=== PATIENT | female | born 1950 | race Caucasian/White ===

== ENCOUNTER 2018-01-07 15:27 | Inpatient (IN) | payer OTHER ==
[2018-01-07] MEDS: ALBUTEROL 0.5% (NEB) 2.5 MG/0.5 ML AMP INH ×2 (16:23→17:11)
[2018-01-07] MEDS: IPRATROPIUM (NEB) 0.5 MG/2.5 ML AMP INH ×2 (16:23→17:11)
[2018-01-07] MEDS: METHYLPREDNISOLONE 125 MG INJ IV ×2 (16:29→21:30)
[2018-01-07] MEDS: MAGNESIUM SULFATE 2 GM/50 ML 50 ML IVPB (16:29)
[2018-01-07] MEDS: SODIUM CHLORIDE 0.9% 1L BAG IV* (16:30)
[2018-01-07 16:36] LABS: ADD MAN DIFF? NO
[2018-01-07 16:37] LABS: WHITE BLOOD COUNT 9.7 10^3/ul (4.8-10.8)
[2018-01-07 16:37] LABS: BASOPHIL # 0.1 10^3/ul (0.0-0.1); BASOPHILS % 0.6 % (0.0-2.0); EOSINOPHILS # 0.1 10^3/ul (0.0-0.5); EOSINOPHILS % 1.1 % (0.0-7.0); HEMATOCRIT 43.3 % (37.0-47.0); HEMOGLOBIN 14.2 g/dl (12.0-16.0); LYMPHOCYTES # 2.7 10^3/ul (0.8-2.9); LYMPHOCYTES % 28.2 % (15.0-51.0); MEAN CORPUSCULAR HEMOGLOBIN 30.9 pg (29.0-33.0); MEAN CORPUSCULAR HGB CONC 32.8 g/dl (32.0-37.0); MEAN CORPUSCULAR VOLUME 94.3 fl (82.0-101.0); MEAN PLATELET VOLUME 9.4 fl (7.4-10.4); MONOCYTE # 0.8 10^3/ul (0.3-0.9); NEUTROPHIL # 5.9 10^3/ul (1.6-7.5); NEUTROPHILS % 61.5 % (39.0-77.0); PLATELET COUNT 365 10^3/UL (140-415); RED BLOOD COUNT 4.59 10^6/ul (4.20-5.40)
[2018-01-07 16:53] LABS: INR 0.93; PROTIME 12.6 Sec (11.9-14.9)
[2018-01-07 16:54] LABS: PARTIAL THROMBOPLASTIN TIME 25.7 Sec (25.0-35.0)
[2018-01-07 17:01] LABS: ALANINE AMINOTRANSFERASE 24 IU/L (13-69); ALKALINE PHOSPHATASE 63 IU/L (42-121); ANION GAP 15 (8-16); ASPARTATE AMINO TRANSFERASE 23 IU/L (15-46); BLOOD UREA NITROGEN 6 mg/dl (7-20); CALCIUM 9.5 mg/dl (8.4-10.2); CARBON DIOXIDE 27 mmol/L (21-31); CHLORIDE 101 mmol/L (97-110); CREATININE 0.77 mg/dl (0.44-1.00); GLUCOSE 126 mg/dl (70-220); LIPASE 41 U/L (23-300); SODIUM 139 mmol/L (135-144)
[2018-01-07 17:02] LABS: ALBUMIN 3.8 g/dl (3.3-4.9); ALBUMIN/GLOBULIN RATIO 1.15; TOTAL PROTEIN 7.1 g/dl (6.1-8.1)
[2018-01-07 17:12] LABS: TROPONIN-I < 0.012 ng/ml (0.000-0.120)
[2018-01-07] MEDS: CEFEPIME 2GM/50 ML (PMX) 50 ML IVPB (17:19)
[2018-01-07 17:44] LABS: ADD UMIC YES; UR ASCORBIC ACID NEGATIVE (NEGATIVE); UR BACTERIA FEW /HPF (NONE SEEN); UR BILIRUBIN (Dip) NEGATIVE (NEGATIVE); UR BLOOD (Dip) NEGATIVE (NEGATIVE); UR CLARITY SLIGHTLY CLOUDY (CLEAR); UR COLOR YELLOW (YELLOW); UR GLUCOSE (Dip) NEGATIVE (NEGATIVE); UR KETONES (Dip) NEGATIVE (NEGATIVE); UR LEUKOCYTE ESTERASE (Dip) TRACE Leu/ul (NEGATIVE); UR MUCUS FEW /HPF (NONE SEEN); UR NITRITE (Dip) NEGATIVE (NEGATIVE); UR RBC 0 /HPF (0-5); UR SPECIFIC GRAVITY (Dip) 1.008 (1.003-1.030); UR SQUAMOUS EPITHELIAL CELL MODERATE /HPF (FEW); UR TOTAL PROTEIN (Dip) NEGATIVE (NEGATIVE); UR UROBILINOGEN (Dip) NEGATIVE (NEGATIVE); UR WBC 4 /HPF (0-5)
[2018-01-07] MEDS: SOD CHLORIDE 0.9% 100 ML (17:57)
[2018-01-07] MEDS: IOHEXOL 100 ML (17:58)
[2018-01-07] MEDS ORDERED: ONDANSETRON 4 MG INJ IV ×2 (18:30→19:00)
[2018-01-07] MEDS ORDERED: ACETAMINOPHEN 325 MG TAB PO (18:30)
[2018-01-07 18:57] LABS: LACTIC ACID 1.6 mmol/L (0.5-2.0)
[2018-01-07] MEDS: VANCOMYCIN 1 GM (PMX) 250 ML IVPB (18:57)
[2018-01-07] MEDS: ACETAMINOPHEN 500 MG TAB PO (18:57)
[2018-01-07] MEDS ORDERED: hydrALAzine 20 MG INJ IV (19:00)
[2018-01-07] MEDS ORDERED: NACL 0.9% 3 ML SYG IV (19:00)
[2018-01-07] MEDS ORDERED: DOCUSATE SODIUM 100 MG CAP PO (19:00)
[2018-01-07] MEDS ORDERED: MAGNESIUM HYDROXIDE 30ML CUP PO (19:00)
[2018-01-07] MEDS ORDERED: NITROGLYCERIN (SL) 0.4 MG TAB SL (19:00)
[2018-01-07] MEDS ORDERED: morphine 2 MG INJ IV (19:00)
[2018-01-07] MEDS ORDERED: NA PHOSPHATE/BIPHOS 133 ML ENEMA PR (19:00)
[2018-01-07] MEDS: SOD CHLORIDE 0.45% 1,000 ML IV (19:53)
[2018-01-07 19:54] LABS: FREE T4 (FREE THYROXINE) 1.22 ng/dl (0.78-2.44)
[2018-01-07] MEDS: HEPARIN 5,000 UNIT/0.5 ML VIAL SC (21:32)
[2018-01-07 23:17] LABS: LACTIC ACID 2.9 mmol/L (0.5-2.0)
[2018-01-08] MEDS: LORAZEPAM 2 MG INJ IV ×3 (01:47→20:03)
[2018-01-08] MEDS: ALBUTEROL/IPRATROPIUM (NEB) 3 ML AMP HHN ×5 (02:05→19:52)
[2018-01-08 05:21] LABS: ADD MAN DIFF? NO
[2018-01-08 05:27] LABS: ABNORMAL IP MESSAGE 1; HEMATOCRIT 39.3 % (37.0-47.0); HEMOGLOBIN 13.1 g/dl (12.0-16.0); LYMPHOCYTES # 0.6 10^3/ul (0.8-2.9); LYMPHOCYTES % 10.2 % (15.0-51.0); MEAN CORPUSCULAR HEMOGLOBIN 31.4 pg (29.0-33.0); MEAN CORPUSCULAR HGB CONC 33.3 g/dl (32.0-37.0); MEAN CORPUSCULAR VOLUME 94.2 fl (82.0-101.0); MEAN PLATELET VOLUME 9.6 fl (7.4-10.4); MONOCYTES % 0.5 % (0.0-11.0); NEUTROPHILS % 88.8 % (39.0-77.0); PLATELET COUNT 336 10^3/UL (140-415); RED BLOOD COUNT 4.17 10^6/ul (4.20-5.40); RED CELL DISTRIBUTION WIDTH 13.7 % (11.5-14.5)
[2018-01-08 05:27] LABS: WHITE BLOOD COUNT 5.7 10^3/ul (4.8-10.8)
[2018-01-08 05:30] LABS: POSITIVE DIFF @See below
[2018-01-08] MEDS: LEVOFLOXACIN 750MG/D5W (PMX) 150 ML IVPB (05:39)
[2018-01-08] MEDS: PANTOPRAZOLE (EC) 40 MG TAB PO (05:42)
[2018-01-08 05:57] LABS: LACTIC ACID 1.2 mmol/L (0.5-2.0)
[2018-01-08 06:00] LABS: ANION GAP 12 (8-16); BLOOD UREA NITROGEN 7 mg/dl (7-20); CALCIUM 8.7 mg/dl (8.4-10.2); CARBON DIOXIDE 24 mmol/L (21-31); CHLORIDE 106 mmol/L (97-110); CREATININE 0.53 mg/dl (0.44-1.00); GLUCOSE 194 mg/dl (70-220); MAGNESIUM 2.2 mg/dl (1.7-2.5); PHOSPHORUS 3.6 mg/dl (2.5-4.9); POTASSIUM 4.2 mmol/L (3.5-5.1); SODIUM 138 mmol/L (135-144)
[2018-01-08 06:29] LABS: THYROID STIMULATING HORMONE 0.626 MIU/L (0.465-4.680)
[2018-01-08 06:38] LABS: CHOL/HDL RATIO 2.8 RATIO; HDL CHOLESTEROL 60 mg/dl (35-98); LDL CHOLESTEROL,CALCULATED 91 mg/dl; TRIGLYCERIDES 98 mg/dl (0-149)
[2018-01-08 06:38] LABS: CHOLESTEROL 171 mg/dl (100-200)
[2018-01-08 08:11] LABS: HEMOGLOBIN A1C 6.5 % (0-5.9)
[2018-01-08] MEDS: HYDROCODONE/APAP (5/325) TAB PO ×2 (08:56→21:21)
[2018-01-08] MEDS: METHYLPREDNISOLONE 125 MG INJ IV (10:46)
[2018-01-08] MEDS: CLOPIDOGREL 75 MG TAB PO (10:46)
[2018-01-08] MEDS: HEPARIN 5,000 UNIT/0.5 ML VIAL SC ×2 (10:47→20:05)
[2018-01-08] MEDS: ESCITALOPRAM 10 MG TAB PO (11:40)
[2018-01-08] MEDS: AMLODIPINE 10 MG TAB PO (11:40)
[2018-01-08] MEDS: ACETAMINOPHEN 325 MG TAB PO (15:42)
[2018-01-08] MEDS: SOD CHLORIDE 0.45% 1,000 ML IV ×2 (15:42→21:20)
[2018-01-09] MEDS: ALBUTEROL/IPRATROPIUM (NEB) 3 ML AMP HHN ×6 (01:22→20:14)
[2018-01-09] MEDS: PANTOPRAZOLE (EC) 40 MG TAB PO (05:16)
[2018-01-09 06:19] LABS: ADD MAN DIFF? NO
[2018-01-09 06:25] LABS: BASOPHILS % 0.1 % (0.0-2.0); HEMATOCRIT 36.9 % (37.0-47.0); LYMPHOCYTES # 1.8 10^3/ul (0.8-2.9); LYMPHOCYTES % 14.5 % (15.0-51.0); MEAN CORPUSCULAR HEMOGLOBIN 30.8 pg (29.0-33.0); MEAN CORPUSCULAR HGB CONC 32.5 g/dl (32.0-37.0); MEAN CORPUSCULAR VOLUME 94.6 fl (82.0-101.0); MEAN PLATELET VOLUME 10.3 fl (7.4-10.4); MONOCYTE # 0.8 10^3/ul (0.3-0.9); MONOCYTES % 6.5 % (0.0-11.0); NEUTROPHIL # 9.7 10^3/ul (1.6-7.5); NEUTROPHILS % 78.2 % (39.0-77.0); PLATELET COUNT 311 10^3/UL (140-415)
[2018-01-09 06:25] LABS: WHITE BLOOD COUNT 12.4 10^3/ul (4.8-10.8)
[2018-01-09 07:11] LABS: ANION GAP 9 (8-16); BLOOD UREA NITROGEN 11 mg/dl (7-20); CALCIUM 8.7 mg/dl (8.4-10.2); CARBON DIOXIDE 27 mmol/L (21-31); CHLORIDE 107 mmol/L (97-110); GLUCOSE 142 mg/dl (70-220); POTASSIUM 4.3 mmol/L (3.5-5.1); SODIUM 139 mmol/L (135-144)
[2018-01-09] MEDS: ESCITALOPRAM 10 MG TAB PO (09:01)
[2018-01-09] MEDS: CLOPIDOGREL 75 MG TAB PO (09:02)
[2018-01-09] MEDS: AMLODIPINE 10 MG TAB PO (09:02)
[2018-01-09] MEDS: HYDROCODONE/APAP (5/325) TAB PO ×2 (09:03→19:00)
[2018-01-09] MEDS: METHYLPREDNISOLONE 40 MG INJ IV (09:03)
[2018-01-09] MEDS: HEPARIN 5,000 UNIT/0.5 ML VIAL SC ×2 (09:12→22:06)
[2018-01-09] MEDS: ACETAMINOPHEN 325 MG TAB PO (14:39)
[2018-01-09] MEDS: GUAIFENESIN/DM 5ML CUP PO (18:59)
[2018-01-09] MEDS: LORAZEPAM 2 MG INJ IV (21:59)
[2018-01-10] MEDS: ALBUTEROL/IPRATROPIUM (NEB) 3 ML AMP HHN ×4 (01:27→12:11)
[2018-01-10 05:17] LABS: ADD MAN DIFF? NO
[2018-01-10] MEDS: PANTOPRAZOLE (EC) 40 MG TAB PO (05:27)
[2018-01-10 05:30] LABS: WHITE BLOOD COUNT 10.4 10^3/ul (4.8-10.8)
[2018-01-10 05:30] LABS: BASOPHILS % 0.2 % (0.0-2.0); HEMATOCRIT 38.5 % (37.0-47.0); HEMOGLOBIN 12.3 g/dl (12.0-16.0); LYMPHOCYTES # 3.4 10^3/ul (0.8-2.9); LYMPHOCYTES % 32.7 % (15.0-51.0); MEAN CORPUSCULAR HEMOGLOBIN 30.6 pg (29.0-33.0); MEAN CORPUSCULAR HGB CONC 31.9 g/dl (32.0-37.0); MEAN CORPUSCULAR VOLUME 95.8 fl (82.0-101.0); MEAN PLATELET VOLUME 9.8 fl (7.4-10.4); MONOCYTE # 0.8 10^3/ul (0.3-0.9); MONOCYTES % 7.7 % (0.0-11.0); NEUTROPHIL # 6.1 10^3/ul (1.6-7.5); NEUTROPHILS % 58.6 % (39.0-77.0); PLATELET COUNT 329 10^3/UL (140-415); RED BLOOD COUNT 4.02 10^6/ul (4.20-5.40); RED CELL DISTRIBUTION WIDTH 14.1 % (11.5-14.5)
[2018-01-10 05:38] LABS: ANION GAP 10 (8-16); BLOOD UREA NITROGEN 12 mg/dl (7-20); CALCIUM 8.7 mg/dl (8.4-10.2); CARBON DIOXIDE 31 mmol/L (21-31); CHLORIDE 103 mmol/L (97-110); GLUCOSE 106 mg/dl (70-220); POTASSIUM 3.8 mmol/L (3.5-5.1); SODIUM 140 mmol/L (135-144)
[2018-01-10] MEDS: CLOPIDOGREL 75 MG TAB PO (09:03)
[2018-01-10] MEDS: HYDROCODONE/APAP (5/325) TAB PO (09:03)
[2018-01-10] MEDS: ESCITALOPRAM 10 MG TAB PO (09:03)
[2018-01-10] MEDS: AMLODIPINE 10 MG TAB PO (09:03)
[2018-01-10] MEDS: HEPARIN 5,000 UNIT/0.5 ML VIAL SC (09:12)
[2018-01-10] MEDS: LORAZEPAM 2 MG INJ IV (11:22)
[2018-01-10 12:33] LABS: AADO2 Arterial 65.2 mmHg (7.0-24.0); Allen Test ACCEPTAB; Arterial Base Excess 1.8 mmol/L (-3.0-3); Arterial COHb 0.7 % (0.0-3.0); Arterial Fraction of Oxyhgb 79.4 % (93.0-99.0); Arterial HCO3 25.4 mmol/L (22.0-26.0); Arterial MetHb 0 % (0.0-1.5); Arterial Total Hemglobin 14.4 g/dl (12.0-18.0); Arterial pCO2 36.8 mmhg (35-45); MODE ROOM AIR; Site Left Radial
== END 2018-01-10 13:25 | disposition home or self-care (01) | DRG 192 ==
LOC: 6WM 18:21 → E/R 15:27
PROC: 4A033R1 Measurement of Arterial Saturation, Peripheral, Percutaneous Approach (ICD-10-PCS; principal; 2018-01-10)
DX: J44.1 Chronic obstructive pulmonary disease with (acute) exacerbation (principal); J44.0 Chronic obstructive pulmonary disease with (acute) lower respiratory infection; J20.9 Acute bronchitis, unspecified; I73.9 Peripheral vascular disease, unspecified; Z72.0 Tobacco use; I10 Essential (primary) hypertension; E11.9 Type 2 diabetes mellitus without complications; K82.8 Other specified diseases of gallbladder; Z88.2 Allergy status to sulfonamides
CPT/HCPCS: 36415; 36600; 71045; 71275; 76705; 80048; 80053; 80061; 81001; 82803; 83036; 83605; 83690; 83735; 84100; 84439; 84443; 84484; 85025; 85610; 85730; 87040; 87086; 93005; 94640; 94644; 94645; 94664; 96374; 96375; 99285-25